=== PATIENT | female | born 1990 | race Caucasian/White ===

== ENCOUNTER 2017-09-29 17:52 | Emergency (ER) | payer MEDICAID ==
[~2017-09-29] VITALS: Ht 152.4 cm; Wt 54.0 kg
[2017-09-29 20:45] VITALS: BP 110/70
== END 2017-09-29 21:56 | disposition home or self-care (01) ==
LOC: ER 21:09
DX: R05 Cough (principal); J02.9 Acute pharyngitis, unspecified; R09.81 Nasal congestion; M79.1 Myalgia
CPT/HCPCS: 87804; 99284